=== PATIENT | male | born 1935 | race Caucasian/White ===

== ENCOUNTER → 2019-08-08 | Outpatient (CLI) | payer MEDICARE ==
[~2019-08-08] MED LIST: ADALAT CC30 MG; ASPIRIN325; CLONIDINE0.1; MULTIVITAMINS1 EAC7; PROBIOTIC1 EAC1
--- NOTE | 2019-08-08 11:20 | 2DMMODE ---
[place] [address] 2 D/M-MODE ECHOCARDIOGRAM Name: LIANNA OLIVA Room: [facility]#: [id number] Admission: 08/08/19 Attend Phys: Tano Huynh, Discharge: Date of : 39 Date of Service: 08/08/19 1120 Report #: [id number] THIS REPORT FOR: //name// APPROVED REPORT Study performed: 08/08/2019 07:56:49 EXAM: Comprehensive 2D, Doppler, and color-flow Echocardiogram Patient Location: Out-Patient BSA: 2.17 HR: 65 bpm BP: 108/70 mmHg Other Information Study Quality: Good Indications Atrial Fibrillation 2D Dimensions IVSd: 12.44 (7-11mm) LVOT Diam: 20.88 (18-24mm) LVDd: 47.85 mm PWd: 11.14 (7-11mm) Ascending Ao: 35.14 (22-36mm) LVDs: 24.77 (25-40mm) Aortic Root: 31.30 mm Volumes Left Atrial Volume (Systole) LA ESV Index: 31.70 mL/m2 Aortic Valve AoV Peak Faheem.: 1.03 m/s AO Peak Gr.: 4.27 mmHg LVOT Max P.47 mmHg AO Mean Gr.: 2.41 mmHg LVOT Mean P.62 mmHg LVOT Max V: 0.93 m/s AO V2 VTI: 21.48 cm LVOT Mean V: 0.58 m/s SAIMA (VTI): 2.70 cm2 LVOT V1 VTI: 16.95 cm Mitral Valve MV Decel. Time: 145.04 ms MV E Max Faheem.: 1.01 m/s MV PHT: 42.06 ms MVA (PHT): 5.23 cm2 [place] [address] 2 D/M-MODE ECHOCARDIOGRAM Name: LIANNA OLIVA Room: [facility]#: [id number] Admission: 08/08/19 Attend Phys: Tano Huynh, Discharge: Date of : 39 Date of Service: 08/08/19 1120 Report #: [id number] TDI E/Lateral E': 7.77 E/Medial E': 6.73 Medial E' Faheem.: 0.15 m/s Lateral E' Faheem.: 0.13 m/s Pulmonary Valve PV Peak Faheem.: 0.82 m/s PV Peak Gr.: 2.68 mmHg Tricuspid Valve RAP Estimate: 5.00 mmHg TR Peak Gr.: 31.88 mmHg RVSP: 36.88 mmHg PA Pressure: 36.88 mmHg Left Ventricle The left ventricle is normal size. There is normal LV segmental wall motion. There is normal left ventricular wall thickness. Left ventricular systolic function is normal. The left ventricular ejection fraction is within the normal range. LVEF is 60%. This study is not technically sufficient to allow evaluation of the LV diastolic function due to atrial fibrillation. Right Ventricle The right ventricle is normal size. The right ventricular systolic function is normal. Atria Left atrium is borderline dilated. The right atrium size is normal. Aortic Valve Mild aortic valve sclerosis. No aortic regurgitation is present. There is no aortic valvular stenosis. Mitral Valve The mitral valve is normal in structure. Mild mitral regurgitation. No evidence of mitral valve stenosis. Tricuspid Valve The tricuspid valve is normal in structure. Mild tricuspid regurgitation. Pulmonic Valve The pulmonary valve is normal in structure. Mild pulmonic regurgitation[place] [address] 2 D/M-MODE ECHOCARDIOGRAM Name: ELLENLISALIANNA [id number] Admission: 08/08/19 Attend Phys: Tano Huynh, Discharge: Date of : 39 Date of Service: 08/08/19 1120 Report #: [id number] The aortic root is normal in size. IVC is normal in size and collapses >50% with inspiration. Pericardium There is no pericardial effusion. <Conclusion> The left ventricle is normal size. There is normal left ventricular wall thickness. Left ventricular systolic function is normal. The left ventricular ejection fraction is within the normal range. LVEF is 60%. This study is not technically sufficient to allow evaluation of the LV diastolic function due to atrial fibrillation. The right ventricle is normal size. Left atrium is borderline dilated. The right atrium size is normal. Mild aortic valve sclerosis. No aortic regurgitation is present. There is no aortic valvular stenosis. The mitral valve is normal in structure. Mild mitral regurgitation. The tricuspid valve is normal in structure. Mild tricuspid regurgitation. IVC is normal in size and collapses >50% with inspiration. There is no pericardial effusion. There is normal LV segmental wall motion. <ELECTRONICALLY SIGNED> By: Dain Souza MD, FACC 08/08/19 1120 1120 112 Dain Souza MD, FACC /INF
== END ==
LOC: M.CRD 07:54
DX: I08.8 Other rheumatic multiple valve diseases (principal); I48.0 Paroxysmal atrial fibrillation